=== PATIENT | male | born 1975 | race Hispanic/Latino ===

== ENCOUNTER 2020-07-07 16:58 | Emergency (ER) | payer BC ==
--- NOTE | 2020-07-07 17:50 | RAD ---
Right wrist 3 views: 07/07/2020 COMPARISON: None HISTORY: Fall, trauma, pain FINDINGS: No fracture or dislocation. No radiopaque foreign body or subcutaneous gas. If symptoms per sist, follow-up in 7-10 days with dedicated scaphoid views advised. IMPRESSION: No acute findings.
--- NOTE | 2020-07-07 17:50 | RAD ---
4 views left knee: 07/07/2020 COMPARISON: None HISTORY: Injury, trauma, pain FINDINGS: No fracture or dislocation. No radiopaque foreign body or subcutaneous gas. IMPRESSION: No acute findings.
[2020-07-07] MEDS ORDERED: HYDROcodone/Acetaminophen 5/325 mg Tablet ONE (18:08)
--- NOTE | 2020-07-12 10:18 | EKG ---
Test Reason : Blood Pressure : / mmHG Vent. Rate : 097 BPM Atrial Rate : 097 BPM P-R Int : 148 ms QRS Dur : 104 ms QT Int : 336 ms P-R-T Axes : 050 020 071 degrees QTc Int : 426 ms Normal sinus rhythm Normal ECG Confirmed by RENUKA HUNG ([id number]), editor house organ JJ YOUNGBLOOD ([id number] on 07/12/2020 10:18:36 AM Referred By: Confirmed By:RENUKA aLuren
== END 2020-07-07 18:44 | disposition home or self-care (01) ==
LOC: ERS 16:58
DX: S83.92XA Sprain of unspecified site of left knee, initial encounter (principal); S60.211A Contusion of right wrist, initial encounter; I10 Essential (primary) hypertension; F17.210 Nicotine dependence, cigarettes, uncomplicated; W01.0XXA Fall on same level from slipping, tripping and stumbling without subsequent striking against object, initial encounter
CPT/HCPCS: 29125; 93005

== ENCOUNTER 2022-10-14 09:13 | Inpatient (IN) | payer BC ==
[2022-10-14] MEDS ORDERED: Lisinopril 10 MG TAB ONE ×2 (10:10→17:59)
[2022-10-14] MEDS ORDERED: hydrALAZINE 20 MG/ML VIAL ONE (10:10)
[2022-10-14 10:24] LABS: #Eosinphils 0.1 thou/uL (0.0-0.7); #Lymphocytes 2.7 thou/uL (1.20-3.40); #Monocytes 0.6 thou/uL (0.11-0.59); #Neutrophils 4.3 thou/uL (1.40-6.50); %Basophils 0.2 % (0.0-1.0); %Eosinophils 0.8 % (0.0-10.0); %Lymphocytes 34.8 % (21.0-51.0); %Neutrophils 56.2 % (42.0-75.0); Hemoglobin 15.9 g/dL (14.0-18.0); Mean Corpuscular HGB CONC 31.1 g/dL (32.0-36.0); Mean Corpuscular Hemoglobin 28.5 pg (27.0-31.0); Mean Corpuscular Volume 91.7 fl (78.0-98.0); Mean Platelet Volume 8.3 fL (7.4-10.4); Platelet Count 282 10x3/uL (130-400); RBC Distribution Width 11.4 % (11.5-14.5); Red Blood Cell (RBC) Count 5.58 mill/uL (4.70-6.10); White Blood Cell (WBC) Count 7.6 10x3/uL (4.8-10.8)
[2022-10-14 10:43] LABS: ALT (SGPT) 17 U/L (8-55); AST (SGOT) 12 U/L (5-34); Albumin 4.8 g/dL (3.5-5.0); Alkaline Phosphatase 103 U/L (40-110); Anion Gap 17 mmol/L (10-20); BUN (Urea Nitrogen) 12 mg/dL (8.9-20.6); Bilirubin, Total 1.2 mg/dL (0.2-1.2); Calc. Creatinine Clearance 0 mL/min (70-130); Calcium 9.8 mg/dL (7.8-10.44); Carbon Dioxide 23 mmol/L (22-29); Chloride 101 mmol/L (98-107); Estimated GFR 108; Globulin 3.5 g/dL (2.4-3.5); Glucose 287 mg/dL (70-105); Lipase 19 U/L (8-78); Magnesium 2.2 mg/dL (1.6-2.6); Potassium 3.7 mmol/L (3.5-5.1); Protein, Total 8.3 g/dL (6.0-8.3); Sodium 137 mmol/L (136-145)
[2022-10-14] MEDS ORDERED: niCARdipine 25 MG/10 ML SDV ONE (11:23)
[2022-10-14] MEDS ORDERED: Dextrose 5% in Water 1,000 ML IV PRN (12:38)
[2022-10-14] MEDS ORDERED: HumaLOG 300 UNITS/3 ML VIAL SC PRN (12:38)
[2022-10-14] MEDS ORDERED: Dextrose 50% Abboject 50 ML SYRINGE SLOW IVP PRN (12:38)
[2022-10-14] MEDS ORDERED: Amlodipine 10 MG TAB PO SCH (12:45)
[2022-10-14] MEDS ORDERED: Labetalol HCl 100 MG/20 ML VIAL SLOW IVP SCH (12:45)
[2022-10-14] MEDS ORDERED: LORazepam 2 MG/ML SYR.(CARPUJECT) ONE (12:58)
[2022-10-14] MEDS ORDERED: Lorazepam 2 MG/ML VIAL SLOW IVP PRN (14:26)
[2022-10-14] MEDS ORDERED: Lorazepam 2 MG/ML VIAL SLOW IVP SCH (14:30)
[2022-10-14] MEDS ORDERED: Ondansetron ODT 4 MG TAB PO PRN (14:32)
[2022-10-14] MEDS ORDERED: Lorazepam 1 MG TAB PO PRN (14:32)
[2022-10-14] MEDS ORDERED: Lorazepam 2 MG/ML VIAL IM PRN (14:32)
[2022-10-14] MEDS ORDERED: Electrolyte Replacement Protocol 1 EACH FS SCH (14:45)
[2022-10-14] MEDS ORDERED: Thiamine HCl 200 MG/2 ML VIAL SLOW IVP SCH (14:45)
[2022-10-14] MEDS ORDERED: Labetalol HCl 100 MG/20 ML VIAL ONE (15:00)
[2022-10-14] MEDS ORDERED: Multivit, Therapeutic 1 TAB PO SCH (15:15)
[2022-10-14] MEDS ORDERED: Folic Acid 1 MG TAB PO SCH (15:15)
[2022-10-14] MEDS ORDERED: Thiamine 100 MG TAB PO SCH (15:45)
[2022-10-14] MEDS ORDERED: Thiamine 100 MG TAB ONE (15:48)
[2022-10-14] MEDS ORDERED: Folic Acid 1 MG TAB ONE (15:48)
[2022-10-14] MEDS ORDERED: Lorazepam 1 MG TAB ONE (15:48)
[2022-10-14] MEDS: Lorazepam 1 MG TAB PO SCH ×2 (15:53→21:14)
[2022-10-14] MEDS ORDERED: Labetalol HCl 100 MG/20 ML VIAL SLOW IVP PRN (15:53)
[2022-10-14 16:07] LABS: #Lymphocytes 1.9 thou/uL (1.20-3.40); #Monocytes 0.8 thou/uL (0.11-0.59); #Neutrophils 10.3 thou/uL (1.40-6.50); %Basophils 0.4 % (0.0-1.0); %Eosinophils 0.2 % (0.0-10.0); %Lymphocytes 14.9 % (21.0-51.0); %Monocytes 5.8 % (0.0-10.0); %Neutrophils 78.7 % (42.0-75.0); Hemoglobin 15.6 g/dL (14.0-18.0); Mean Corpuscular HGB CONC 34.6 g/dL (32.0-36.0); Mean Corpuscular Hemoglobin 31.1 pg (27.0-31.0); Mean Corpuscular Volume 89.8 fl (78.0-98.0); Platelet Count 263 10x3/uL (130-400); RBC Distribution Width 11.2 % (11.5-14.5); Red Blood Cell (RBC) Count 5.01 mill/uL (4.70-6.10); White Blood Cell (WBC) Count 13.1 10x3/uL (4.8-10.8)
[2022-10-14 16:25] LABS: Bilirubin, Direct 0.3 mg/dL (0.1-0.3); Magnesium 1.8 mg/dL (1.6-2.6); Phosphorus 3.4 mg/dL (2.3-4.7)
[2022-10-14] MEDS ORDERED: Lisinopril 20 MG TAB PO SCH (17:30)
[2022-10-14] MEDS: metFORMIN 500 MG TAB PO SCH (18:46)
[2022-10-14] MEDS ORDERED: Magnesium 2 GM/50 ML(in water) 2 GM in Premix Bag 1 BAG IVPB SCH (21:00)
[2022-10-14 23:33] VITALS: BMI 34.6
[2022-10-15] MEDS: Lorazepam 1 MG TAB PO SCH ×2 (03:03→09:03)
[2022-10-15 05:05] LABS: #Eosinphils 0.2 thou/uL (0.0-0.7); #Lymphocytes 2.7 thou/uL (1.20-3.40); #Monocytes 0.9 thou/uL (0.11-0.59); #Neutrophils 5.3 thou/uL (1.40-6.50); %Basophils 0.4 % (0.0-1.0); %Eosinophils 1.7 % (0.0-10.0); %Lymphocytes 30.2 % (21.0-51.0); %Monocytes 9.8 % (0.0-10.0); Hemoglobin 14.9 g/dL (14.0-18.0); Mean Corpuscular HGB CONC 34.1 g/dL (32.0-36.0); Mean Corpuscular Hemoglobin 31.1 pg (27.0-31.0); Mean Corpuscular Volume 91.1 fl (78.0-98.0); Mean Platelet Volume 8.3 fL (7.4-10.4); Platelet Count 232 10x3/uL (130-400); RBC Distribution Width 11.3 % (11.5-14.5); Red Blood Cell (RBC) Count 4.79 mill/uL (4.70-6.10); White Blood Cell (WBC) Count 9.1 10x3/uL (4.8-10.8)
[2022-10-15 05:11] LABS: Hemoglobin A1c 7.6 % (4.0-6.0)
[2022-10-15 05:33] LABS: ALT (SGPT) 13 U/L (8-55); AST (SGOT) 12 U/L (5-34); Albumin 4.1 g/dL (3.5-5.0); Alkaline Phosphatase 79 U/L (40-110); Anion Gap 14 mmol/L (10-20); BUN (Urea Nitrogen) 11 mg/dL (8.9-20.6); Bilirubin, Total 0.9 mg/dL (0.2-1.2); Calc. Creatinine Clearance 191 mL/min (70-130); Calcium 9.4 mg/dL (7.8-10.44); Carbon Dioxide 25 mmol/L (22-29); Chloride 103 mmol/L (98-107); Estimated GFR 113; Globulin 2.9 g/dL (2.4-3.5); Glucose 170 mg/dL (70-105); Magnesium 2.1 mg/dL (1.6-2.6); Sodium 138 mmol/L (136-145)
[2022-10-15 08:59] VITALS: TEMP 97.7
[2022-10-15] MEDS ORDERED: Multivit, Therapeutic 1 TAB PO SCH (09:00)
[2022-10-15] MEDS ORDERED: Lisinopril 20 MG TAB PO SCH (09:00)
[2022-10-15] MEDS ORDERED: Thiamine 100 MG TAB PO SCH (09:00)
[2022-10-15] MEDS ORDERED: Folic Acid 1 MG TAB PO SCH (09:00)
[2022-10-15] MEDS ORDERED: Amlodipine 10 MG TAB PO SCH (09:00)
[2022-10-15] MEDS: metFORMIN 500 MG TAB PO SCH (09:01)
[2022-10-15 09:03] VITALS: BP 158/94
[2022-10-15] MEDS ORDERED: Lorazepam 1 MG TAB PO PRN (14:33)
[2022-10-16] MEDS ORDERED: Lorazepam 1 MG TAB PO PRN (14:33)
[2022-10-16] MEDS ORDERED: Lorazepam 0.5 MG TAB PO SCH (14:45)
[2022-10-17] MEDS ORDERED: Lorazepam 0.5 MG TAB PO PRN (14:33)
[2022-10-17] MEDS ORDERED: Thiamine 100 MG TAB PO SCH (14:45)
== END 2022-10-15 12:06 | disposition home or self-care (01) | DRG 305 ==
LOC: ERS 09:13 → ERHOLD 12:23 → 2SW 19:54
PROVIDERS: ADMIT Internal Medicine; ATTEND Internal Medicine
DX: I16.0 Hypertensive urgency (principal); E11.9 Type 2 diabetes mellitus without complications; F17.210 Nicotine dependence, cigarettes, uncomplicated; F10.10 Alcohol abuse, uncomplicated; Z91.148 Patient's other noncompliance with medication regimen for other reason
CPT/HCPCS: 36415; 36416; 71045; 80053; 82248; 83036; 83690; 83735; 84100; 84484; 85025; 93005; 96365; 96366; 96375; J0360; J2060; J3475

== ENCOUNTER 2023-12-06 09:50 | Emergency (ER) | payer SELFPAY | END 2023-12-06 11:44 | disposition home or self-care (01) | LOC: ERS 09:50 | DX: H61.23 Impacted cerumen, bilateral (principal); I10 Essential (primary) hypertension; E11.9 Type 2 diabetes mellitus without complications; Z79.899 Other long term (current) drug therapy; Z79.84 Long term (current) use of oral hypoglycemic drugs | CPT/HCPCS: 69209; 99282 ==

== ENCOUNTER 2024-06-25 14:48 | Emergency (ER) | payer SELFPAY ==
[2024-06-25] MEDS ORDERED: Silver Sulfadiazine 50 GM TUBE ONE (18:27)
== END 2024-06-25 18:36 | disposition home or self-care (01) ==
LOC: ERS 14:48
DX: T21.21XA Burn of second degree of chest wall, initial encounter (principal); E11.9 Type 2 diabetes mellitus without complications; I10 Essential (primary) hypertension; Z79.84 Long term (current) use of oral hypoglycemic drugs; Z79.899 Other long term (current) drug therapy; X10.1XXA Contact with hot food, initial encounter; Y93.G3 Activity, cooking and baking
CPT/HCPCS: 99282